=== PATIENT | female | born 1960 | race Caucasian/White ===

== ENCOUNTER → 2017-02-06 | Outpatient (CLI) | payer MEDICAID ==
[2017-02-06 18:01] LABS: BASO % 0.4 % (0.0-1.0); EOS # 0.1 K/mm3 (0.0-0.50); EOS % 0.9 % (0.0-3.0); LYMPH # 2.8 K/mm3 (1.5-4.5); LYMPH % 28.4 % (24.0-44.0); MEAN CORPUSCULAR HEMOGLOBIN 32.2 pg (27.0-33.0); MEAN CORPUSCULAR HGB CONC 32.1 g/dl (32.0-36.5); MEAN CORPUSCULAR VOLUME 100.2 fl (80.0-96.0); MONO # 0.7 K/mm3 (0.0-0.8); MONO % 7.1 % (0.0-5.0); NEUTROPHILS % 61.8 % (36.0-66.0); RED CELL DISTRIBUTION WIDTH 12.9 % (11.5-14.5); WHITE BLOOD COUNT 9.7 K/mm3 (4.0-10.0)
[2017-02-06 18:48] LABS: ALBUMIN 3.8 GM/DL (3.2-5.2); ALBUMIN/GLOBULIN RATIO 1.19 (1.00-1.93); ALKALINE PHOSPHATASE 123 U/L (45-117); ALT/SGPT 15 U/L (12-78); ANION GAP 7 MEQ/L (8-16); AST/SGOT 12 U/L (15-37); BILIRUBIN,TOTAL 0.5 MG/DL (0.2-1.0); BLOOD UREA NITROGEN 16 MG/DL (7-18); CALCIUM LEVEL 9.1 MG/DL (8.5-10.1); CARBON DIOXIDE LEVEL 30 MEQ/L (21-32); CHLORIDE LEVEL 104 MEQ/L (98-107); CHOLESTEROL LEVEL 151 MG/DL (<200); CREATININE FOR GFR 0.94 MG/DL (0.55-1.02); GLOMERULAR FILTRATION RATE > 60.0 (>51); GLUCOSE, FASTING 179 MG/DL (70-105); POTASSIUM SERUM 4.4 MEQ/L (3.5-5.1); SODIUM LEVEL 141 MEQ/L (136-145); TRIGLYCERIDES LEVEL 112 MG/DL (<150)
== END ==
LOC: M SMT 13:44
PROVIDERS: ATTEND Physician Assistant Medical
DX: E11.9 Type 2 diabetes mellitus without complications (principal)

== ENCOUNTER → 2017-02-27 | Outpatient (CLI) | payer OTHER ==
--- NOTE | 2017-02-27 08:20 | REP ---
Clinical: Suspicious nodule on recent chest x-ray. Findings: The bilateral lung falk are symmetric, well aerated, and essentially clear. The 1.1 cm rounded density identified in the left lower lung zone on recent x-ray likely corresponds to asymmetric nipple shadow. There is no evidence for acute consolidation, significant nodule or mass lesion by current CT. No pleural effusion/reaction or pneumothorax. Tracheobronchial tree is patent. No obvious adenopathy. Mediastinum including thoracic aorta, heart and pericardium are normal. Surrounding musculoskeletal structures are intact. Impression: Normal noncontrast chest CT. Asymmetric left-sided density on recent x-ray corresponds to nipple shadow. Signed by Kevin Wang MD 02/27/2017 08:11 A
== END ==
LOC: M RAD 06:58
PROVIDERS: ATTEND Physician Assistant Medical
DX: R91.8 Other nonspecific abnormal finding of lung field (principal)

== ENCOUNTER → 2017-03-12 | Outpatient (REF) | payer OTHER ==
[2017-03-12 13:10] LABS: BASO % 0.3 % (0.0-1.0); EOS # 0.1 K/mm3 (0.0-0.50); EOS % 0.8 % (0.0-3.0); LYMPH # 2.7 K/mm3 (1.5-4.5); LYMPH % 24.8 % (24.0-44.0); MEAN CORPUSCULAR HGB CONC 32.5 g/dl (32.0-36.5); MEAN CORPUSCULAR VOLUME 98.7 fl (80.0-96.0); MONO # 0.6 K/mm3 (0.0-0.8); MONO % 5.2 % (0.0-5.0); NEUTROPHILS # 7.4 K/mm3 (1.8-7.7); NEUTROPHILS % 67.6 % (36.0-66.0); RED CELL DISTRIBUTION WIDTH 12.7 % (11.5-14.5)
[2017-03-12 13:31] LABS: ALBUMIN 3.5 GM/DL (3.2-5.2); ALKALINE PHOSPHATASE 121 U/L (45-117); ALT/SGPT 14 U/L (12-78); ANION GAP 9 MEQ/L (8-16); AST/SGOT 14 U/L (15-37); BILIRUBIN,TOTAL 0.4 MG/DL (0.2-1.0); BLOOD UREA NITROGEN 15 MG/DL (7-18); CALCIUM LEVEL 8.8 MG/DL (8.5-10.1); CARBON DIOXIDE LEVEL 25 MEQ/L (21-32); CHLORIDE LEVEL 105 MEQ/L (98-107); CHOLESTEROL LEVEL 171 MG/DL (<200); CREATININE FOR GFR 0.85 MG/DL (0.55-1.02); GLOMERULAR FILTRATION RATE > 60.0 (>51); GLUCOSE, FASTING 151 MG/DL (70-105); POTASSIUM SERUM 4.1 MEQ/L (3.5-5.1); SODIUM LEVEL 139 MEQ/L (136-145); TRIGLYCERIDES LEVEL 214 MG/DL (<150)
== END ==
LOC: M LABDRAW1 11:53
PROVIDERS: ATTEND Physician Assistant Medical
DX: E11.9 Type 2 diabetes mellitus without complications (principal)

== ENCOUNTER → 2017-04-24 | Outpatient (CLI) | payer OTHER ==
[2017-04-24 13:16] LABS: BASO % 0.5 % (0.0-1.0); EOS # 0.1 K/mm3 (0.0-0.50); EOS % 1.4 % (0.0-3.0); LYMPH # 2.8 K/mm3 (1.5-4.5); LYMPH % 31.7 % (24.0-44.0); MEAN CORPUSCULAR HEMOGLOBIN 32.1 pg (27.0-33.0); MEAN CORPUSCULAR HGB CONC 32.8 g/dl (32.0-36.5); MEAN CORPUSCULAR VOLUME 97.8 fl (80.0-96.0); MONO # 0.6 K/mm3 (0.0-0.8); NEUTROPHILS # 4.8 K/mm3 (1.8-7.7); NEUTROPHILS % 57.7 % (36.0-66.0); RED CELL DISTRIBUTION WIDTH 13.8 % (11.5-14.5); WHITE BLOOD COUNT 8.4 K/mm3 (4.0-10.0)
[2017-04-24 13:28] LABS: ALBUMIN 3.4 GM/DL (3.2-5.2); ALKALINE PHOSPHATASE 91 U/L (45-117); ALT/SGPT 12 U/L (12-78); ANION GAP 10 MEQ/L (8-16); AST/SGOT 6 U/L (15-37); BILIRUBIN,TOTAL 0.2 MG/DL (0.2-1.0); BLOOD UREA NITROGEN 20 MG/DL (7-18); CALCIUM LEVEL 8.5 MG/DL (8.5-10.1); CARBON DIOXIDE LEVEL 25 MEQ/L (21-32); CHLORIDE LEVEL 110 MEQ/L (98-107); CHOLESTEROL LEVEL 166 MG/DL (<200); CREATININE FOR GFR 0.75 MG/DL (0.55-1.02); GLOMERULAR FILTRATION RATE > 60.0 (>51); GLUCOSE, FASTING 90 MG/DL (70-105); POTASSIUM SERUM 4.3 MEQ/L (3.5-5.1); SODIUM LEVEL 145 MEQ/L (136-145); TOTAL PROTEIN 6.5 GM/DL (6.4-8.2); TRIGLYCERIDES LEVEL 106 MG/DL (<150)
== END ==
LOC: M WUC 10:02
PROVIDERS: ATTEND Physician Assistant Medical
DX: E11.9 Type 2 diabetes mellitus without complications (principal)

== ENCOUNTER → 2017-05-21 | Outpatient (REF) | payer OTHER | LOC: M LAB REF 18:47 | PROVIDERS: ATTEND Physician Assistant Medical | DX: N39.0 Urinary tract infection, site not specified (principal) ==

== ENCOUNTER → 2017-07-09 | Outpatient (CLI) | payer OTHER ==
--- NOTE | 2017-07-10 05:40 | REP ---
Clinical: Abdominal pain with history of renal cell carcinoma. Technique: Real time sethi scale ultrasound examination using curved array transducer. Findings: The liver includes a 3.7 x 2.5 x 2.3 cm right lobe hyperechoic lesion likely representing hemangioma and is otherwise normal. Visualized portions of the pancreas are unremarkable but limited due to interposed bowel gas. Spleen is normal in size and appearance without splenic lesion. Gallbladder is unremarkable and without gallstones, wall thickening or pericholecystic fluid. No biliary ductal dilatation is appreciated and the common bile duct measures 5 mm diameter. The bilateral kidneys appear normal in reniform shape and echogenicity without hydronephrosis. Right kidney measures 11.6 x 5.9 x 4.2 cm. Left kidney measures 10.6 x 5.6 x 5.8 cm. Atherosclerotic changes to the visualized abdominal aorta which measures 2.4 cm maximal diameter. No ascites. A 3 cm hypoechoic area superior to the right kidney may represent adrenal gland. Impression: 1. 3.7 cm hyperechoic focus in the right lobe of the liver may represent hemangioma and may warrant contrast enhanced CT of the abdomen and pelvis for further investigation. 2. Cannot exclude 3 cm right adrenal lesion which may also benefit from above-mentioned contrast enhanced CT of the abdomen and pelvis. Signed by Kevin Wang MD 07/10/2017 05:31 A
== END ==
LOC: M RAD 09:02
PROVIDERS: ATTEND Physician Assistant Medical
DX: R10.9 Unspecified abdominal pain (principal)

== ENCOUNTER → 2017-08-05 | Outpatient (REF) | payer OTHER ==
[2017-08-05 13:58] LABS: BACTERIA, URINE NONE SEEN; HYALINE CAST, URINE NONE SEEN /lpf (0-1); RBC, URINE 0-1 /hpf (0-3); SQUAMOUS EPITHELIAL CELL URINE SMALL AMOUNT /hpf (SMALL AMT)
[2017-08-05 13:59] LABS: MICROSCOPIC EXAM PERFORMED
== END ==
LOC: M SMT 13:07
PROVIDERS: ATTEND Specialist
DX: N39.42 Incontinence without sensory awareness (principal)

== ENCOUNTER → 2017-08-24 | Outpatient (CLI) | payer OTHER ==
[2017-08-24 12:41] LABS: BASO % 0.4 % (0.0-1.0); EOS # 0.1 10^3/uL (0.0-0.50); EOS % 1.3 % (0.0-3.0); IMMATURE GRANULOCYTE % 1.1 % (0-0); LYMPH # 1.4 10^3/uL (1.5-4.5); LYMPH % 29.6 % (24.0-44.0); MEAN CORPUSCULAR HEMOGLOBIN 31.9 pg (27.0-33.0); MEAN CORPUSCULAR HGB CONC 32.4 g/dl (32.0-36.5); MEAN CORPUSCULAR VOLUME 98.4 fl (80.0-96.0); MONO # 0.9 10^3/uL (0.0-0.8); MONO % 18.4 % (0.0-5.0); NEUTROPHILS # 2.3 10^3/uL (1.8-7.7); NEUTROPHILS % 49.2 % (36.0-66.0); PLATELET COUNT, AUTOMATED 238 10^3/uL (150-450); RED CELL DISTRIBUTION WIDTH 13.9 % (11.5-14.5); WHITE BLOOD COUNT 4.7 10^3/uL (4.0-10.0)
[2017-08-24 14:11] LABS: ALBUMIN 3.1 GM/DL (3.2-5.2); ALKALINE PHOSPHATASE 99 U/L (45-117); ALT/SGPT 16 U/L (12-78); ANION GAP 8 MEQ/L (8-16); AST/SGOT 9 U/L (7-37); BILIRUBIN,TOTAL 0.3 MG/DL (0.2-1.0); BLOOD UREA NITROGEN 17 MG/DL (7-18); CALCIUM LEVEL 8.3 MG/DL (8.5-10.1); CARBON DIOXIDE LEVEL 25 MEQ/L (21-32); CHLORIDE LEVEL 107 MEQ/L (98-107); CHOLESTEROL LEVEL 114 MG/DL (<200); CREATININE FOR GFR 0.85 MG/DL (0.55-1.02); FERRITIN 48 NG/ML (8-252); GLOMERULAR FILTRATION RATE > 60.0 (>51); GLUCOSE, FASTING 211 MG/DL (70-105); SODIUM LEVEL 140 MEQ/L (136-145); T UPTAKE 34 % (30-39); THYROXINE (T4) 7.8 UG/DL (4.5-12.0); TOTAL PROTEIN 6.2 GM/DL (6.4-8.2); TRIGLYCERIDES LEVEL 96 MG/DL (<150)
--- NOTE | 2017-08-25 04:50 | REP ---
Clinical: Knee pain. Technique: AP, lateral, sunrise views of the left and right knee. Findings: Age-related degenerative changes include increased sclerosis to the tibial plateau and medial joint space narrowing. Mild chondrocalcinosis cannot be excluded as well. Findings are bilateral and relatively symmetric. Impression: Mild age-related degenerative changes involving the medial joint space bilaterally. Signed by Kevin Wang MD 08/25/2017 04:43 A
== END ==
LOC: M LAB 12:00
PROVIDERS: ATTEND Physician Assistant Medical
DX: E11.9 Type 2 diabetes mellitus without complications (principal); M17.4 Other bilateral secondary osteoarthritis of knee

== ENCOUNTER → 2017-09-02 | Outpatient (CLI) | payer OTHER ==
[~2017-09-02] MED LIST: PROHANCE 279.3MG/ML 15ML VIAL (A9576) As Ordered ONE
== END ==
LOC: M RAD 14:19
PROVIDERS: ATTEND Physician Assistant Medical
DX: R10.84 Generalized abdominal pain (principal); Z53.9 Procedure and treatment not carried out, unspecified reason

== ENCOUNTER → 2018-11-23 | Outpatient (CLI) | payer OTHER ==
--- NOTE | 2018-11-23 10:32 | REP ---
Low-dose noncontrast lungs CT: Comparison chest CT study February 27, 2017. CT findings: Preliminary digital scientist propagator radiograph is unremarkable. There are mild emphysematous changes in the upper lobes bilaterally. There is a small focal 4 mm perifissural nodule along the major fissure superiorly on the left unchanged from the February 27, 2017 study. There is a pleural-based 4 mm nodule in the right lower lobe on page 59 of today's study which is unchanged from prior study. However, today's study also shows multiple new tiny ill defined noncalcified pulmonary nodules none larger than 4 mm. These are visible in the upper lobes bilaterally and in the left lower lobe. No other abnormality. Impression: Multiple new 3 and 4 mm noncalcified pulmonary nodules present bilaterally. Lung-RADS category [address] study recommended 1 year. Electronically Signed by Mundo Urena MD 11/23/2018 11:16 A
== END ==
LOC: M RAD 07:45
PROVIDERS: ATTEND Physician Assistant
DX: Z12.2 Encounter for screening for malignant neoplasm of respiratory organs (principal); F17.218 Nicotine dependence, cigarettes, with other nicotine-induced disorders; R91.8 Other nonspecific abnormal finding of lung field

== ENCOUNTER → 2019-04-28 | Outpatient (CLI) | payer OTHER ==
--- NOTE | 2019-04-28 15:12 | REP ---
WHOLE BODY BONE SCAN: Following the intravenous administration of 21.4 mCi of technetium 99m MDP, the patient's whole body is imaged in the anterior and posterior projections with additional oblique and lateral views obtained. Homogeneous radiotracer distribution is noted throughout the axial and appendicular skeleton. No focal abnormal uptake is seen. There is no abnormal uptake in any portion of the spine. Renal and bladder activity are seen. IMPRESSION: Negative whole body bone scan with no abnormal uptake in the axial or appendicular skeleton. Electronically Signed by Jonathan Grey MD 04/28/2019 03:23 P
== END ==
LOC: M RAD 09:23
PROVIDERS: ATTEND Physician Assistant
DX: M47.22 Other spondylosis with radiculopathy, cervical region (principal)
CPT/HCPCS: 78306; A9503

== ENCOUNTER → 2019-11-16 | Outpatient (CLI) | payer OTHER ==
--- NOTE | 2019-11-16 17:20 | REP ---
CT of the chest without IV contrast: Comparison is the low-dose lung screening chest CT dated 11/23/2018. On the comparison study there are multiple small lung nodules. On the study today almost all of the previous lung nodules have resolved, likely transient atelectasis. There are only two persisting nodules, one posteriorly in the left upper lobe on image 26, unchanged. And the other medially in the right lower lobe, pleural-based, on image 54, also unchanged. The lack of interval change suggest these are likely granulomas. All of the other nodules have resolved. There are no new lung nodules. There are no infiltrates. No pleural effusions. There is no mediastinal or axillary lymph node enlargement. In the absence of IV contrast the study is insensitive for hilar lymph node enlargement. The unenhanced thoracic aorta is unremarkable. Cardiac size is normal. The visualized upper abdominal contents are unremarkable. Impression: Almost all of the previous small lung nodules have resolved, likely transient atelectasis. Early to persisting small lung nodules as described, unchanged, likely granulomas. Otherwise, negative CT study of the chest. Electronically Signed by Jonathan Baptiste MD 11/16/2019 05:12 P
== END ==
LOC: M RAD 13:57
PROVIDERS: ATTEND Physician Assistant
DX: R91.8 Other nonspecific abnormal finding of lung field (principal)

== ENCOUNTER → 2020-12-10 | Outpatient (CLI) | payer OTHER ==
--- NOTE | 2020-12-10 10:46 | REP ---
INDICATION: OTHER NON SPECIFIC ABNORMAL FINDING OF LUNG FIELD. COMPARISON: Comparison CT studies of the chest are from November 16, 2019, November 23, 2018, and February 27, 2017.. TECHNIQUE: Helical scanning is acquired. 3 mm axial images are generated. Coronal and sagittal MPR and coronal MIP images are generated. FINDINGS: There is no evidence of pleural effusion or pericardial effusion. No hilar or mediastinal mass or adenopathy is observed. There is a 2.4 cm benign adrenal adenoma in the right adrenal gland which is unchanged. The visualized upper abdominal structures are otherwise unremarkable. There is some vascular calcification including left coronary artery vascular calcification. There are numerous new peribronchovascular tiny ill-defined non solid nodular opacities in the upper lobes bilaterally suggesting inflammatory disease or pneumonia. There are several of these in the superior segments of the lower lobes bilaterally as well. There is a granulomatous calcification in the right lower lobe and an subcentimeter stable nodular density is seen in the posterior segment of left upper lobe unchanged. No large nodule or lung mass is seen. IMPRESSION: Numerous new central lobular and peribronchovascular ill-defined non solid tiny nodules in the upper lobes and lower lobes bilaterally consistent with inflammatory lung disease. <Electronically signed by Max Urena > 12/10/20 [id number]
== END ==
LOC: M RAD 08:55
PROVIDERS: ATTEND Physician Assistant
DX: R91.8 Other nonspecific abnormal finding of lung field (principal)

== ENCOUNTER → 2021-01-10 | Outpatient (CLI) | payer OTHER ==
--- NOTE | 2021-01-10 09:45 | REP ---
INDICATION: PANLOBULAR EMPHYSEMA COMPARISON: None. TECHNIQUE: PA and lateral. FINDINGS: The mediastinum and cardiac silhouette are normal. The lung falk are clear and without acute consolidation, effusion, or pneumothorax. The skeletal structures are intact and normal. IMPRESSION: No acute cardiopulmonary process. <Electronically signed by Kevin Wang > 01/10/21 0942
== END ==
LOC: M RAD 09:24
PROVIDERS: ATTEND Physician Assistant
DX: J43.9 Emphysema, unspecified (principal)

== ENCOUNTER → 2021-01-19 | Outpatient (CLI) | payer OTHER | LOC: M LABSMTC 08:54 | PROVIDERS: ATTEND Internal Medicine Cardiovascular Disease | DX: Z20.822 Contact with and (suspected) exposure to COVID-19 (principal) ==

== ENCOUNTER → 2021-03-18 | Outpatient (CLI) | payer OTHER ==
--- NOTE | 2021-03-18 10:04 | REP ---
INDICATION: ABN FINDING OF LUNG FIELD. COMPARISON: Comparison chest CT studies are reviewed from November 16, 2019, November 23, 2018, and February 27, 2017. Most recent prior comparison chest CT study is from December 10, 2020.. TECHNIQUE: Helical scanning is acquired. 3 mm axial images are generated. Coronal and sagittal MPR and coronal MIP images are generated. FINDINGS: The most recent prior study showed numerous in new non solid bilateral upper lobe nodules consistent with inflammatory disease. These have resolved. There is aa 1 cm ground-glass opacity in the left lower lobe which does not appear to have been present previously. There are several stable scattered subcentimeter pulmonary nodules. There is minimal linear fibrosis in the lingula at the left base. No new suspicious pulmonary nodule is appreciated. There are mild emphysematous changes in the upper lobes. Vascular calcification is observed. There is no evidence of pleural or pericardial effusion. No hilar or mediastinal mass is observed. There is a low-density lesion in the right adrenal gland consistent with an adenoma measuring 2.6 cm in greatest diameter. Mean Hounsfield unit density within this adenoma is -21 Hounsfield units. This is unchanged from the July 20, [address] study. The visualized upper abdominal structures are otherwise unremarkable. No bony destructive lesion is seen. IMPRESSION: There are multiple stable subcentimeter scattered pulmonary nodules. The new nodules identified on the most recent prior study of December 10, 2020 have resolved. <Electronically signed by Max Urena > 03/18/21 1001
== END ==
LOC: M RAD 09:33
PROVIDERS: ATTEND Physician Assistant
DX: R91.8 Other nonspecific abnormal finding of lung field (principal)

== ENCOUNTER → 2021-04-11 | Outpatient (CLI) | payer OTHER ==
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
== END ==
LOC: M PAIN 13:00
PROVIDERS: ATTEND Nurse Practitioner Family
DX: M79.7 Fibromyalgia (principal); J44.9 Chronic obstructive pulmonary disease, unspecified; E11.9 Type 2 diabetes mellitus without complications; K21.9 Gastro-esophageal reflux disease without esophagitis; F41.9 Anxiety disorder, unspecified; F32.9 Major depressive disorder, single episode, unspecified; E78.00 Pure hypercholesterolemia, unspecified; E55.9 Vitamin D deficiency, unspecified; R32 Unspecified urinary incontinence; F17.210 Nicotine dependence, cigarettes, uncomplicated; Z79.02 Long term (current) use of antithrombotics/antiplatelets; Z79.84 Long term (current) use of oral hypoglycemic drugs; Z79.899 Other long term (current) drug therapy; Z88.2 Allergy status to sulfonamides; Z88.6 Allergy status to analgesic agent; Z88.8 Allergy status to other drugs, medicaments and biological substances; Z88.5 Allergy status to narcotic agent; Z91.040 Latex allergy status

== ENCOUNTER → 2021-09-10 | Outpatient (CLI) | payer OTHER ==
[~2021-09-10] MED LIST changes: +ISOVUE-370 76% 100ML VIAL As Ordered ONE; -PROHANCE 279.3MG/ML 15ML VIAL (A9576) As Ordered ONE
--- NOTE | 2021-09-10 11:03 | REPVR ---
PROCEDURE INFORMATION: Exam: CT Angiography Head With Contrast, Arteriography Exam date and time: 09/10/2021 9:23 AM Age: 60 years old Clinical indication: Condition or disease; Aneurysm, cerebral; Additional info: Cerebral aneurysm, nonruptured TECHNIQUE: Imaging protocol: Computed tomography angiography of the head with contrast. Exam focused on the arteries. 3D rendering (Not supervised by radiologist): MIP and/or 3D reconstructed images were created by the technologist. Radiation optimization: All CT scans at this facility use at least one of these dose optimization techniques: automated exposure control; mA and/or kV adjustment per patient size (includes targeted exams where dose is matched to clinical indication); or iterative reconstruction. Contrast material: ISO 370; Contrast volume: 75 ml; Contrast route: INTRAVENOUS (IV); COMPARISON: None available. FINDINGS: ANTERIOR CIRCULATION: Right internal carotid artery: Unremarkable. Intracranial segment is patent with no significant stenosis. No aneurysm. Right middle cerebral artery: Unremarkable. No occlusion or significant stenosis. No aneurysm. Right anterior cerebral artery: Unremarkable. No occlusion or significant stenosis. No aneurysm. Left internal carotid artery: Unremarkable. Intracranial segment is patent with no significant stenosis. No aneurysm. Left middle cerebral artery: Unremarkable. No occlusion or significant stenosis. No aneurysm. Left anterior cerebral artery: Unremarkable. No occlusion or significant stenosis. No aneurysm. POSTERIOR CIRCULATION: Right vertebral artery: Unremarkable. No occlusion or significant stenosis. No aneurysm. Left vertebral artery: Unremarkable. No occlusion or significant stenosis. No aneurysm. Basilar artery: Unremarkable. No occlusion or significant stenosis. No aneurysm. Right posterior cerebral artery: Unremarkable. No occlusion or significant stenosis. No aneurysm. Left posterior cerebral artery: Unremarkable. No occlusion or significant stenosis. No aneurysm. Brain: No definite mass, mass effect, or midline shift. Cerebral ventricles: No ventriculomegaly. Bones/joints: Unremarkable. No acute fracture. Soft tissues: Unremarkable. Paranasal sinuses: There are air-fluid levels within the sphenoid sinuses, compatible with sinusitis. IMPRESSION: Intracranial arterial circulation within normal limits.. Electronically signed by: Denise Dawn On 09/10/2021 11:03:30 AM
== END ==
LOC: M RAD 08:48
PROVIDERS: ATTEND Physician Assistant Medical
DX: I67.1 Cerebral aneurysm, nonruptured (principal)
CPT/HCPCS: 70496; Q9967

== ENCOUNTER → 2021-10-10 | Outpatient (CLI) | payer OTHER | LOC: M RAD 10:04 | PROVIDERS: ATTEND Physician Assistant | DX: R91.8 Other nonspecific abnormal finding of lung field (principal) ==

== ENCOUNTER → 2022-12-24 | Outpatient (CLI) | payer OTHER | LOC: M RAD 07:48 | PROVIDERS: ATTEND Physician Assistant | DX: R91.1 Solitary pulmonary nodule (principal); F17.218 Nicotine dependence, cigarettes, with other nicotine-induced disorders ==

== ENCOUNTER → 2023-08-18 | Day surgery (SDC) | payer OTHER ==
[~2023-08-18] VITALS: Ht 157.5 cm; Wt 62.5 kg
[~2023-08-18] MED LIST changes: +ALBU2.5V10 INH; +ATOR80TA59 PO; +BASA100I SC; +BUSP1TAB PO; +CLOP75TA2 PO; +DEPA1TAB3 PO; +ERGO500029 PO; +EZET10TA21 PO; +GALC120S SQ; +INCR1INH INH; -ISOVUE-370 76% 100ML VIAL As Ordered ONE; +JANU100T PO; +LIDOCAINE 2% 100MG/5ML SDV (FOR ANES.) As Ordered ONE; +METF850T4 PO; +MIRT-84 PO; +MOME13HF7 INH; +MYRB50TA PO; +NS 1,000 ML IV ONE; +OMEP40CA4 PO; +PROA1AER2 INH; +QUET300T2 PO; +SUMA100T2 PO; +TUMS500C PO; +ePHEDrine SULFATE 25 MG/5 ML(5MG/ML) SYRINGE As Ordered ONE; +fentaNYL 100 MCG/2 ML INJECTION As Ordered ONE; +propofoL 200 MG/20 ML VIAL As Ordered ONE
[2023-08-18 09:24] VITALS: TEMP 97.1
[2023-08-18 09:50] VITALS: BP 130/63; O2SAT 93
== END | disposition home or self-care (01) ==
LOC: M OPP 07:29
PROVIDERS: ATTEND Internal Medicine Gastroenterology
DX: Z12.11 Encounter for screening for malignant neoplasm of colon (principal); Z80.0 Family history of malignant neoplasm of digestive organs; D12.6 Benign neoplasm of colon, unspecified; K63.5 Polyp of colon; K64.4 Residual hemorrhoidal skin tags; K64.8 Other hemorrhoids; K57.30 Diverticulosis of large intestine without perforation or abscess without bleeding; K22.89 Other specified disease of esophagus; K29.70 Gastritis, unspecified, without bleeding; R13.10 Dysphagia, unspecified; E13.9 Other specified diabetes mellitus without complications; I25.10 Atherosclerotic heart disease of native coronary artery without angina pectoris; Z85.528 Personal history of other malignant neoplasm of kidney; Z79.02 Long term (current) use of antithrombotics/antiplatelets; Z79.51 Long term (current) use of inhaled steroids; Z79.83 Long term (current) use of bisphosphonates; Z79.84 Long term (current) use of oral hypoglycemic drugs; Z79.82 Long term (current) use of aspirin; Z79.899 Other long term (current) drug therapy; Z88.2 Allergy status to sulfonamides; Z88.5 Allergy status to narcotic agent; Z88.6 Allergy status to analgesic agent; Z88.7 Allergy status to serum and vaccine; Z88.8 Allergy status to other drugs, medicaments and biological substances; Z91.048 Other nonmedicinal substance allergy status
CPT/HCPCS: 43239; 45385; 88305; J3010

== ENCOUNTER → 2023-11-10 | Outpatient (CLI) | payer OTHER ==
[~2023-11-10] MED LIST changes: +ISOVUE-370 76% 100ML VIAL As Ordered ONE; -LIDOCAINE 2% 100MG/5ML SDV (FOR ANES.) As Ordered ONE; -NS 1,000 ML IV ONE; -ePHEDrine SULFATE 25 MG/5 ML(5MG/ML) SYRINGE As Ordered ONE; -fentaNYL 100 MCG/2 ML INJECTION As Ordered ONE; -propofoL 200 MG/20 ML VIAL As Ordered ONE
== END ==
LOC: M RAD 10:47
PROVIDERS: ATTEND Psychiatry & Neurology Neurology
DX: I72.9 Aneurysm of unspecified site (principal)
CPT/HCPCS: 70496; 70498; Q9967

== ENCOUNTER → 2024-05-03 | Outpatient (CLI) | payer MEDICARE, MEDICAID ==
[~2024-05-03] MED LIST changes: -ISOVUE-370 76% 100ML VIAL As Ordered ONE
== END ==
LOC: M RAD 08:51
PROVIDERS: ATTEND Nurse Practitioner Family
DX: R14.0 Abdominal distension (gaseous) (principal)
CPT/HCPCS: 78264; A9541

== ENCOUNTER 2024-12-27 11:19 | Day surgery (SDC) | payer MEDICARE, MEDICAID ==
[~2024-12-27] VITALS: Ht 160 cm; Wt 61.2 kg
[~2024-12-27 11:19] MED LIST changes: +ESOM40CA35 PO; +LANTINJ4 SQ; +LINZ145C PO; +SOLI10TA PO; +TIRZ2.5P; +TOPI25TA10 PO
[2024-12-27] MEDS ORDERED: fentaNYL 100 MCG/2 ML INJECTION As Ordered ONE (13:22)
[2024-12-27] MEDS ORDERED: GLYCOPYRROLATE INJ 0.2 MG/ML 2 ML VIAL As Ordered ONE (13:26)
[2024-12-27] MEDS ORDERED: LIDOCAINE 2% 100MG/5ML SDV (FOR ANES.) As Ordered ONE (13:26)
[2024-12-27] MEDS ORDERED: propofoL 200 MG/20 ML VIAL As Ordered ONE (13:26)
[2024-12-27] MEDS ORDERED: ALBUTEROL 6.7GM INHALER **FOR ANES. CART/OMNICELL ONLY As Ordered ONE (13:50)
[2024-12-27 14:06] VITALS: TEMP 97.1
[2024-12-27 14:21] VITALS: BP 118/67; O2SAT 96
== END 2024-12-27 14:36 | disposition home or self-care (01) ==
LOC: M OPP 11:19
PROVIDERS: ATTEND Internal Medicine Gastroenterology
DX: D12.4 Benign neoplasm of descending colon (principal); K62.1 Rectal polyp; K64.8 Other hemorrhoids; Z98.0 Intestinal bypass and anastomosis status; Z86.0100 Personal history of colon polyps, unspecified; K44.9 Diaphragmatic hernia without obstruction or gangrene; K31.7 Polyp of stomach and duodenum; K22.4 Dyskinesia of esophagus; R13.10 Dysphagia, unspecified; R12 Heartburn; Z95.5 Presence of coronary angioplasty implant and graft; Z88.2 Allergy status to sulfonamides; Z88.6 Allergy status to analgesic agent; Z88.8 Allergy status to other drugs, medicaments and biological substances; Z88.5 Allergy status to narcotic agent; Z88.7 Allergy status to serum and vaccine; Z91.040 Latex allergy status; Z91.048 Other nonmedicinal substance allergy status; Z79.51 Long term (current) use of inhaled steroids; Z79.4 Long term (current) use of insulin; Z79.84 Long term (current) use of oral hypoglycemic drugs; Z79.899 Other long term (current) drug therapy; J43.9 Emphysema, unspecified; R56.9 Unspecified convulsions
CPT/HCPCS: 43239; 43249; 43251; 45385; 88305; J1596; J3010

== ENCOUNTER → 2025-07-25 | Outpatient (REF) | payer MEDICARE, MEDICAID ==
[~2025-07-25] MED LIST changes: -EZET10TA21 PO; +EZET10TA57 PO; +TOPI-256 PO; -TOPI25TA10 PO
== END ==
LOC: M LAB REF 17:02
PROVIDERS: ATTEND Physician Assistant
DX: J44.1 Chronic obstructive pulmonary disease with (acute) exacerbation (principal)